=== PATIENT | female | born 2000 | race Hispanic/Latino ===

== ENCOUNTER 2020-02-27 23:50 | Emergency (ER) | payer OTHER ==
[~2020-02-27] VITALS: Ht 165.1 cm; Wt 72.6 kg
[2020-02-28] MEDS ORDERED: SODIUM CHLORIDE 0.9% 1000ML 1,000 ML IV SCH (00:30)
[2020-02-28] MEDS ORDERED: CEFTRIAXONE SOD 1 GM/NS 50 ML 50 ML IV ONE (00:30)
[2020-02-28] MEDS ORDERED: ACETAMINOPHEN 325 MG TAB PO ONE (00:30)
[2020-02-28] MEDS ORDERED: SODIUM CHLORIDE 0.9% 1000ML 1,000 ML IV ONE (00:30)
[2020-02-28 00:34] LABS: BASOPHILS # (AUTO) 0.1 (0.0-0.1); BASOPHILS % 0.4 % (0.0-1.0); EOSINOPHILS # (AUTO) 0.3 (0.0-0.4); EOSINOPHILS % 2.5 % (0.0-6.0); HEMATOCRIT 35.5 % (34.2-44.1); LYMPHOCYTES # (AUTO) 3.7 (1.0-3.2); LYMPHOCYTES % 31.8 % (18.0-39.1); MEAN CORPUSCULAR HEMOGLOBIN 24.2 pg (28-32); MEAN CORPUSCULAR VOLUME 78.2 fL (81-99); MONOCYTES # (AUTO) 0.6 (0.2-0.8); MONOCYTES % 4.9 % (4.4-11.3); NEUTROPHILS # (AUTO) 6.9 (2.1-6.9); NEUTROPHILS % 60.2 % (38.7-80.0); PLATELET COUNT 396 x10e3/uL (140-360); RED BLOOD COUNT 4.54 x10e6/uL (3.6-5.1); RED CELL DISTRIBUTION WIDTH 14.4 % (11.7-14.4)
[2020-02-28] MEDS ORDERED: ACETAMINOPHEN 325 MG TAB ONE (00:35)
[2020-02-28] MEDS ORDERED: SODIUM CHLORIDE 0.9% 1000ML 1,000 ML ONE (00:35)
[2020-02-28] MEDS ORDERED: KETOROLAC TROMETHAMINE 30 MG/ML VIAL ONE (00:37)
[2020-02-28] MEDS ORDERED: KETOROLAC TROMETHAMINE 30 MG/ML VIAL IV STA (00:40)
[2020-02-28 00:54] LABS: ALANINE AMINOTRANSFERASE 16 IU/L (0-55); ALBUMIN 4.1 g/dL (3.5-5.0); ALKALINE PHOSPHATASE 89 IU/L (40-150); ANION GAP 12.5 mmol/L (8-16); BLOOD UREA NITROGEN 10 mg/dL (7-26); BUN/CREATININE RATIO 12 (6-25); CALCIUM 9.1 mg/dL (8.4-10.2); CARBON DIOXIDE 23 mmol/L (22-29); CHLORIDE 106 mmol/L (98-107); CREATININE, SERUM 0.81 mg/dL (0.57-1.11); EST GLOMERULAR FILTRATION RATE > 60 ML/MIN (60-); GLUCOSE 100 mg/dL (74-118); POTASSIUM 3.5 mmol/L (3.5-5.1); SODIUM 138 mmol/L (136-145)
[2020-02-28 01:06] LABS: CLARITY,URINE CLOUDY (CLEAR); COLOR,URINE ORANGE (YELLOW); KETONES,URINE TRACE (NEGATIVE); LEUKOCYTE ESTERASE ,URINE LARGE (NEGATIVE); NITRITE,URINE POSITIVE (NEGATIVE); PROTEIN,URINE DIPSTICK >=300 (NEGATIVE)
[2020-02-28 01:07] LABS: BACTERIA,URINE MANY /HPF; BILIRUBIN,URINE 1+ (NEGATIVE); EPITHELIAL CELLS,URINE FEW /LPF; RBC,URINE >50 /HPF (0-5); WBC,URINE (MAN) >50 /HPF (0-5)
[2020-02-28 01:20] VITALS: BP 111/60
== END 2020-02-28 01:30 | disposition home or self-care (01) ==
LOC: ER 02-28 00:23
DX: N30.90 Cystitis, unspecified without hematuria (principal); R50.9 Fever, unspecified; R30.0 Dysuria; R10.30 Lower abdominal pain, unspecified
CPT/HCPCS: 36415; 80053; 81001; 81025; 83605; 85025; 87040; 87086; 87186; 99283; J0696; J1885; J7030